=== PATIENT | female | born 1950 | race Caucasian/White ===

== ENCOUNTER → 2017-01-21 | Outpatient (CLI) | payer MEDICARE, OTHER ==
[~2017-01-21] MED LIST: FERROUS SU300 MG/5 M GT; HUMIBID LA TAB600 MG GT; INVANZ 1 GM VIAL1 GM INJ; IPRAT-ALBUT 0.5-3 ML INH; JEVITY 1.5 CA1500 ML PO; MEGACE 400400 MG/10 GT; RESTORIL15 MG PO; ROBITUSSIN100 MG/5 M GT; SYNTHROID88 MCG PO; TYLENOL 325MG325 MG PO; ZANTAC150 MG PO
== END ==
LOC: CT 14:41
DX: R04.2 Hemoptysis (principal); R63.4 Abnormal weight loss; R13.10 Dysphagia, unspecified; J47.9 Bronchiectasis, uncomplicated
CPT/HCPCS: 70490; 71250

== ENCOUNTER → 2017-02-09 | Outpatient (CLI) | payer MEDICARE, OTHER | LOC: HEART 5 10:46 | DX: J45.909 Unspecified asthma, uncomplicated (principal); Z87.891 Personal history of nicotine dependence | CPT/HCPCS: 94060; 94729 ==

== ENCOUNTER → 2017-02-12 | Outpatient (CLI) | payer MEDICARE, OTHER | LOC: LAB 15:08 | DX: J45.909 Unspecified asthma, uncomplicated (principal); J98.4 Other disorders of lung | CPT/HCPCS: 87015; 87070; 87077; 87116; 87186; 87205 ==

== ENCOUNTER → 2017-02-14 | Outpatient (CLI) | payer MEDICARE, OTHER | LOC: LBRF 14:07 | DX: J45.909 Unspecified asthma, uncomplicated (principal); J98.4 Other disorders of lung ==

== ENCOUNTER → 2017-02-22 | Outpatient (CLI) | payer MEDICARE, OTHER | LOC: RAD 08:18 | DX: K44.9 Diaphragmatic hernia without obstruction or gangrene (principal); K21.9 Gastro-esophageal reflux disease without esophagitis; K22.8 Other specified diseases of esophagus | CPT/HCPCS: 74246 ==

== ENCOUNTER → 2017-03-23 | Outpatient (CLI) | payer MEDICARE, OTHER | LOC: CT 10:36 | DX: J98.4 Other disorders of lung (principal); J47.9 Bronchiectasis, uncomplicated | CPT/HCPCS: 71250 ==

== ENCOUNTER → 2017-06-23 | Outpatient (CLI) | payer MEDICARE, OTHER | LOC: KOH-I 12:38 | DX: J98.4 Other disorders of lung (principal); R91.8 Other nonspecific abnormal finding of lung field | CPT/HCPCS: 71250 ==

== ENCOUNTER → 2021-03-18 | Outpatient (CLI) | payer MEDICARE, OTHER | LOC: KOH-I 03-10 13:00 | DX: R91.8 Other nonspecific abnormal finding of lung field (principal); J98.4 Other disorders of lung | CPT/HCPCS: 71250 ==

== ENCOUNTER → 2021-08-07 | Outpatient (CLI) | payer MEDICARE, OTHER | LOC: KOH-I 10:09 | DX: R06.02 Shortness of breath (principal); J20.9 Acute bronchitis, unspecified | CPT/HCPCS: 71046 ==

== ENCOUNTER → 2021-12-11 | Outpatient (CLI) | payer MEDICARE, OTHER | LOC: KOH-I 12:56 | DX: J47.9 Bronchiectasis, uncomplicated (principal); R91.1 Solitary pulmonary nodule | CPT/HCPCS: 71250 ==

== ENCOUNTER → 2022-04-28 | Outpatient (CLI) | payer MEDICARE, OTHER | LOC: KOH-I 13:26 | DX: E03.9 Hypothyroidism, unspecified (principal) | CPT/HCPCS: 76536 ==